=== PATIENT | female | born 1985 | race Caucasian/White ===

== ENCOUNTER 2017-05-24 07:52 | Emergency (ER) | payer OTHER ==
[~2017-05-24] VITALS: Ht 162.6 cm; Wt 70.3 kg
--- NOTE | 2017-05-24 08:27 | ED Cardiac General ---
History of Present Illness General Chief Complaint: Cardiac/General Problems Stated Complaint: PALPITATIONS Nursing Triage Note: c/o intermittant heart palpitations since yesterday. Source: patient Exam Limitations: no limitations History of Present Illness Time seen by provider: 08:04 Initial Comments This 32-year-old young lady presents to the emergency room with complaints of palpitations. She feels them infrequently but felt multiple palpitations this morning. She denies shortness of air, chest pain, lightheadedness, syncope, dyspnea on exertion, or any other symptoms. She is concerned because there is a strong family history of heart disease. She reports ND in her mother age 40s. She also has had aunts and uncles who developed heart disease in their 40s. Infrequent PVCs are noted on the monitor and on EKG. Patient confirms palpitation during these observed PVCs. Allergies and Home Medications Allergies Uncoded Allergies: SIMETHECONE (Allergy, Unknown, 05/24/17) Home Medications No Active Prescriptions or Reported Meds Review of Systems Constitutional: no symptoms reported EENTM: No Symptoms Reported Respiratory: No Symptoms Reported Cardiovascular: See HPI Gastrointestinal: No Symptoms Reported Genitourinary: No Symptoms Reported Musculoskeletal: no symptoms reported Skin: no symptoms reported Psychiatric/Neurological: No Symptoms Reported Endocrine: No Symptoms Reported Past Zzpuwpu-Uysyzb-Pigbjr Hx Patient Social History Alcohol Use: Occasionally Uses Recreational Drug Use: No Smoking Status: Never a Smoker Recent Foreign Travel: No Contact w/Someone Who Travel: No Recent Infectious Disease Expo: No Surgeries History of Surgeries: Yes (left knee patellar repair) Respiratory History of Respiratory Disorde: Yes Respiratory Disorders: Asthma Cardiovascular History of Cardiac Disorders: No Neurological History of Neurological Disord: No Reproductive System : No Hx Reproductive Disorders: Yes (infertility) Genitourinary History of Genitourinary Disor: No Gastrointestinal History of Gastrointestinal Di: No Musculoskeletal History of Musculoskeletal Dis: No Endocrine History of Endocrine Disorders: No HEENT History of HEENT Disorders: No Cancer History of Cancer: No Psychosocial History of Psychiatric Problem: No Family Medical History Significant Family History: Heart Disease, CAD Under 55 Years Old Physical Exam Vital Signs Vital Sign - Last 12Hours 05/24/17 07:52 Temp 97.5 Pulse 90 Resp 18 B/P (MAP) 137/79 Pulse Ox 98 O2 Delivery Room Air Capillary Refill : Less Than 3 Seconds General Appearance: No Apparent Distress, WD/WN HEENT: PERRL/EOMI, Normal ENT Inspection Neck: Normal Inspection, No JVD Respiratory: Lungs Clear, Normal Breath Sounds, No Accessory Muscle Use, No Respiratory Distress Cardiovascular: Regular Rate, Rhythm, No Edema, Systolic Murmur (possibly split S1) Extremity: Normal Inspection, No Pedal Edema Neurologic/Psychiatric: Alert, Oriented x3, No Motor/Sensory Deficits, Normal 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, 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 Norm as Tested Skin: Normal Color, Warm/Dry Progress/Results/Core Measures Results/Orders Lab Results Laboratory Tests Test 05/24/17 08:35 Range/Units White Blood Count 7.1 4.3-11.0 10^3/uL Red Blood Count 4.49 4.35-5.85 10^6/uL Hemoglobin 13.6 11.5-16.0 G/DL Hematocrit 40 35-52 % Mean Corpuscular Volume 88 80-99 FL Mean Corpuscular Hemoglobin 30 25-34 PG Mean Corpuscular Hemoglobin Concent 34 32-36 G/DL Red Cell Distribution Width 13.1 10.0-14.5 % Platelet Count 247 130-400 10^3/uL Mean Platelet Volume 10.6 H 7.4-10.4 FL Neutrophils (%) (Auto) 71 42-75 % Lymphocytes (%) (Auto) 23 12-44 % Monocytes (%) (Auto) 5 0-12 % Eosinophils (%) (Auto) 1 0-10 % Basophils (%) (Auto) 0 0-10 % Neutrophils # (Auto) 5.0 1.8-7.8 X 10^3 Lymphocytes # (Auto) 1.6 1.0-4.0 X 10^3 Monocytes # (Auto) 0.3 0.0-1.0 X 10^3 Eosinophils # (Auto) 0.1 0.0-0.3 10^3/uL Basophils # (Auto) 0.0 0.0-0.1 10^3/uL Sodium Level 141 135-145 MMOL/L Potassium Level 3.6 3.6-5.0 MMOL/L Chloride Level 109 H 98-107 MMOL/L Carbon Dioxide Level 25 21-32 MMOL/L Anion Gap 7 5-14 MMOL/L Blood Urea Nitrogen 9 7-18 MG/DL Creatinine 0.79 0.60-1.30 MG/DL Estimat Glomerular Filtration Rate > 60 BUN/Creatinine Ratio 11 Glucose Level 91 70-105 MG/DL Calcium Level 9.0 8.5-10.1 MG/DL Magnesium Level 2.0 1.8-2.4 MG/DL Total Bilirubin 0.5 0.1-1.0 MG/DL Aspartate Amino Transf (AST/SGOT) 22 5-34 U/L Alanine Aminotransferase (ALT/SGPT) 14 0-55 U/L Alkaline Phosphatase 27 L 40-136 U/L Total Protein 6.8 6.4-8.2 GM/DL Albumin 3.7 3.2-4.5 GM/DL Thyroid Stimulating Hormone (TSH) 1.38 0.35-4.94 UIU/ML Serum Test, Qualitative NEGATIVE NEGATIVE My Orders Orders - JENA NGUYEN MD Ekg Tracing (05/24/17 07:59) Monitor-Rhythm Ecg Trace Only (05/24/17 07:59) Saline Lock/Iv-Start (05/24/17 08:18) Cbc With Automated Diff (05/24/17 08:18) Comprehensive Metabolic Panel (05/24/17 08:18) Magnesium (05/24/17 08:18) Thyroid Stimulating Hormone (05/24/17 08:18) Chest Pa/Lat (2 View) (05/24/17 08:18) Hcg,Qualitative Serum (05/24/17 08:18) Vital Signs/I&O Vital Sign - Last 12Hours 05/24/17 07:52 Temp 97.5 Pulse 90 Resp 18 B/P (MAP) 137/79 Pulse Ox 98 O2 Delivery Room Air Blood Pressure Mean: 98 Progress Note : Progress Note Patient had no significant rhythm abnormalities in the emergency room. There were occasional PVCs. Workup was unremarkable. Patient was discharged to follow-up with recommendation for echocardiogram and possibly a cardiology referral. ECG Initial ECG Impression Date: May 24, 2017 Initial ECG Impression Time: 08:04 Initial ECG Rate: 86 Initial ECG Rhythm: Normal Sinus Initial ECG Intervals: Normal Comment Normal sinus rhythm with no ST elevation or depression. A single PVC is noted. No abnormal intervals or axis deviation. Diagnostic Imaging Diagonstic Imaging: Xray Plain Films/CT/US/NM/MRI: chest Comments Chest x-ray viewed by me and report reviewed. See report below: NAME: [facility] REC#: [id number] PT STATUS: REG ER : 1985 PHYSICIAN: JENA NGUYEN MD ADMIT DATE: 05/24/17/ER Draft Date of Exam:05/24/17 CHEST PA/LAT (2 VIEW) INDICATION: Palpitations. PA and lateral chest obtained at 9:07 a.m. Heart and mediastinal silhouette are normal in appearance. The lungs are clear. There is no pneumothorax or pleural fluid. IMPRESSION: Negative chest. Dictated on workstation # [id number] Dict: 05/24/17 0854 Trans: 05/24/17 0856 [id number] Interpreted by: NATASHA SOTELO MD Departure Impression Impression: Primary Impression: Palpitations Additional Impressions: PVCs (premature ventricular contractions) Heart murmur Disposition: HOME, SELF-CARE Condition: Stable Departure-Patient Inst. Decision time for Depature: 09:50 Referrals: JULIANNE MOSELEY MD (PCP) Primary Care Physician Patient Instructions: Heart Murmurs, Palpitations (DC) Add. Discharge Instructions: Follow-up with your primary care provider as soon as possible. Discuss evaluating your heart murmur further with echocardiogram. Also consider a cardiology referral because of your heart murmur, palpitations, and extensive family history of heart issues. Return to the emergency room if symptoms worsen or if you develop new symptoms such as shortness of air, chest pain, etc. Avoid excessive or necessary stimulants such as caffeine, decongestants and medications, nicotine, energy drinks, etc. Stay well-hydrated. All discharge instructions reviewed with patient and/or family. Voiced understanding. Scripts No Active Prescriptions or Reported Meds Copy Copies To 1: JULIANNE MOSELEY MD, JOSHUA T MD May 24, 2017 08:27
[2017-05-24 08:42] LABS: BASOPHILS % (AUTO) 0 % (0-10); EOSINOPHILS # (AUTO) 0.1 10^3/uL (0.0-0.3); EOSINOPHILS % (AUTO) 1 % (0-10); LYMPHOCYTES # (AUTO) 1.6 X 10^3 (1.0-4.0); LYMPHOCYTES % (AUTO) 23 % (12-44); MEAN CORPUSCULAR HEMOGLOBIN 30 PG (25-34); MEAN CORPUSCULAR HGB CONC 34 G/DL (32-36); MEAN CORPUSCULAR VOLUME 88 FL (80-99); MEAN PLATELET VOLUME 10.6 FL (7.4-10.4); MONOCYTES # (AUTO) 0.3 X 10^3 (0.0-1.0); MONOCYTES % (AUTO) 5 % (0-12); NEUTROPHILS % (AUTO) 71 % (42-75); PLATELET COUNT 247 10^3/uL (130-400); RED BLOOD COUNT 4.49 10^6/uL (4.35-5.85); RED CELL DISTRIBUTION WIDTH 13.1 % (10.0-14.5); WHITE BLOOD COUNT 7.1 10^3/uL (4.3-11.0)
--- NOTE | 2017-05-24 08:56 | Diagnostic Imaging Report ---
INDICATION: Palpitations. PA and lateral chest obtained at 9:07 a.m. Heart and mediastinal silhouette are normal in appearance. The lungs are clear. There is no pneumothorax or pleural fluid. IMPRESSION: Negative chest. Dictated by: Dictated on workstation # [id number]
[2017-05-24 09:02] LABS: ALANINE AMINOTRANSFERASE 14 U/L (0-55); ALBUMIN 3.7 GM/DL (3.2-4.5); ANION GAP 7 MMOL/L (5-14); ASPARTATE AMINO TRANSFERASE 22 U/L (5-34); BILIRUBIN,TOTAL 0.5 MG/DL (0.1-1.0); BLOOD UREA NITROGEN 9 MG/DL (7-18); BUN/CREATININE RATIO 11; CARBON DIOXIDE 25 MMOL/L (21-32); CHLORIDE 109 MMOL/L (98-107); CREATININE SERUM 0.79 MG/DL (0.60-1.30); GFR ESTIMATED > 60; GLUCOSE 91 MG/DL (70-105); POTASSIUM 3.6 MMOL/L (3.6-5.0); SODIUM 141 MMOL/L (135-145); TOTAL PROTEIN 6.8 GM/DL (6.4-8.2)
[2017-05-24 09:21] LABS: THYROID STIMULATING HORMONE 1.38 UIU/ML (0.35-4.94)
[2017-05-24 10:16] VITALS: BP 129/90
== END 2017-05-24 10:16 | disposition home or self-care (01) ==
LOC: EDUNIT# 07:52 → ER 07:58
DX: I49.3 Ventricular premature depolarization (principal); R01.1 Cardiac murmur, unspecified; J45.909 Unspecified asthma, uncomplicated; Z98.890 Other specified postprocedural states; Z82.49 Family history of ischemic heart disease and other diseases of the circulatory system
CPT/HCPCS: 36415; 71020; 80053; 83735; 84443; 84703; 85025; 93005; 93041

== ENCOUNTER → 2017-08-23 | Outpatient (CLI) | payer OTHER | LOC: CARD 08:53 | PROVIDERS: ATTEND Internal Medicine Interventional Cardiology | DX: I49.1 Atrial premature depolarization (principal); I49.3 Ventricular premature depolarization; R00.2 Palpitations; I42.9 Cardiomyopathy, unspecified | CPT/HCPCS: 93306 ==

== ENCOUNTER → 2018-10-13 | Outpatient (CLI) | payer OTHER ==
--- NOTE | 2018-10-14 08:20 | Diagnostic Imaging Report ---
PROCEDURE: MRI left joint lower extremity without contrast. TECHNIQUE: Multiplanar, multisequence non contrast-enhanced MRI of the left lower extremity was accomplished. INDICATION: Left knee pain and history of left knee surgery in 2008 COMPARISON: None FINDINGS: No acute fracture or dislocation is seen in the left knee. Alignment appears normal. There is artifact at the anteromedial aspect of the knee, likely from prior surgery. There is a defect in the medial femoral condyle with susceptibility artifact and screw placement, likely from prior surgery as well. There is minimally increased joint fluid without stevie effusion. A small Ge's cyst is present. There are tricompartmental degenerative changes with small osteophytes present. The articular cartilage in the patellofemoral compartment demonstrates heterogeneity and fissuring without large full-thickness defect seen. The articular cartilage in the medial compartment demonstrates no large full-thickness defects. There is a full-thickness defect at the lateral femoral condyle measuring 5 mm transverse. The anterior horn of the lateral meniscus appears mildly diminutive. The body appears to be nearly completely extruded from the joint. The medial meniscus appears intact. The anterior and posterior cruciate ligaments appear intact. The medial collateral ligament and the lateral collateral ligamentous complex are intact. The extensor mechanism demonstrates increased signal along the patellar tendon, which may be due to artifact. No other acute abnormalities seen in the soft tissues about the knee. IMPRESSION: 1. Postsurgical changes in the left knee. No acute meniscal or ligamentous tear is seen, although the lateral meniscus appears diminutive anteriorly and the body appears nearly completely extruded. 2. 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 3. Small full-thickness defect at the lateral femoral condyle. 4. Small Ge's cyst. Dictated by: Dictated on workstation # [id number]
== END ==
LOC: RAD 17:28
PROVIDERS: ATTEND Family Medicine
DX: M17.12 Unilateral primary osteoarthritis, left knee (principal); M89.752 Major osseous defect, left pelvic region and thigh; M71.22 Synovial cyst of popliteal space [Baker], left knee; M23.52 Chronic instability of knee, left knee; Z98.890 Other specified postprocedural states
CPT/HCPCS: 73721

== ENCOUNTER → 2023-08-26 | Outpatient (CLI) | payer BC, OTHER ==
--- NOTE | 2023-08-26 16:42 | Diagnostic Imaging Report ---
INDICATION: Bilateral breast densities. Patient presents for additional views. COMPARISON: Correlation is made with prior mammogram from 07/26/2023. EXAMINATION: 2D and 3D bilateral diagnostic mammography was performed. This included spot compression, CC and ML views as well as conventional 90 degree lateral views. FINDINGS: Images of the right breast do show some circumscribed densities in the upper portion of the right breast, anterior as well as mid to posterior depth. There are also circumscribed densities in the slightly upper retroareolar left breast. Further evaluation of these areas with ultrasound is recommended. Axillae are unremarkable. IMPRESSION: Bilateral breast densities. Further evaluation with ultrasound is recommended and will be performed today. ACR BI-RADS Category 0: Incomplete. (Needs additional imaging evaluation). Result letter will be mailed to the patient. Note: At least 10% of breast cancer is not imaged by mammography. Dictated on workstation # [id number]
== END ==
LOC: RAD 12:31
PROVIDERS: ATTEND Family Medicine
DX: R92.30 Dense breasts, unspecified (principal)
CPT/HCPCS: 76642; 77066; G0279; 77062